=== PATIENT | male | born 1995 | race Caucasian/White ===

== ENCOUNTER 2016-11-21 20:23 | Emergency (ER) | payer SELFPAY ==
[~2016-11-21] VITALS: Ht 175.3 cm; Wt 104.3 kg
[~2016-11-21 20:23] MED LIST: AGM875T PO; FLUT16SP22 NS; HYDR-3812 PO; IBP800T PO
--- NOTE | 2016-11-21 21:38 | ED EENT ---
History of Present Illness General Chief Complaint: Oral/Throat Problems Stated Complaint: STREP THROAT/COUGHING UP BLOOD Nursing Triage Note: PT TO ED 10 W/ C/O SORE THROAT ET COUGHING UP BLOOD. REPORTS WAS SEEN AT HIS PCP YESTERDAY ET DX W/ STREP. DENIES IMPROVEMENT History of Present Illness Time seen by provider: 21:30 Initial Comments Evaluation for increased throat pain. He was diagnosed at [facility] yesterday with strep he was started on amoxicillin, but he was unable to get it until today. He's had 2 doses. He had ibuprofen earlier this morning and no Tylenol products today. Timing/Duration: yesterday Severity: moderate Prearrival Treatment: no prearrival treatment Modifying Factors: Improves With Rest Associated Symptoms: No cough, No poor fluid intake, poor solids intake, No sinus infection, sore throat, No voice change Allergies and Home Medications Allergies Coded Allergies: No Known Drug Allergies (Unverified , 01/04/13) Home Medications Hydrocodone/Acetaminophen 1 Each Tablet, 1 EACH PO Q4H PRN for PAIN, #20 Ref 0 Prescribed by: CRYSTAL UPTON on 07/15/16 1349 Prednisone 20 Mg Tab, 20 MG PO BID, #6 Ref 0 Prescribed by: ELIZABETH VALE on 11/21/16 2243 Review of Systems Constitutional: no symptoms reported, see HPI Eyes: No Symptoms Reported, See HPI Ears: No Symptoms Reported, See HPI Nose: no symptoms reported, see HPI Mouth: no symptoms reported, see HPI Throat: see HPI, pain, swelling, painful swallowing Respiratory: no symptoms reported, see HPI Cardiovascular: no symptoms reported, see HPI Gastrointestinal: no symptoms reported, see HPI Musculoskeletal: no symptoms reported, see HPI Skin: no symptoms reported, see HPI Neurological: No Symptoms Reported, See HPI Hematologic/Lymphatic: No Symptoms Reported, See HPI Immunological/Allergic: no symptoms reported, see HPI All Other Systems Reviewed Negative Unless Noted: Yes Past Qqmdvua-Qtezln-Iwnwnv Hx Patient Social History Alcohol Use: Denies Use Recreational Drug Use: No Smoking Status: Never a Smoker Recent Foreign Travel: No Contact w/Someone Who Travel: No Recent Infectious Disease Expo: No Recent Hopitalizations: No Surgeries HX Surgeries: No Respiratory Hx Respiratory Disorders: No Cardiovascular Hx Cardiac Disorders: No Neurological Hx Neurological Disorders: No Genitourinary Hx Genitourinary Disorders: No Gastrointestinal Hx Gastrointestinal Disorders: Yes Gastrointestinal Disorders: Liver Disease/Jaundice Reviewed Nursing Assessment Reviewed/Agree w Nursing PMH: Yes Family Medical History Significant Family History: No Pertinent Family Hx Physical Exam Vital Signs Vital Sign - Last 12Hours 11/21/16 20:54 Temp 98.1 Pulse 103 Resp 20 B/P (MAP) 142/101 O2 Delivery Room Air General Appearance: WD/WN, no apparent distress Eyes: bilateral eye EOMI, bilateral eye PERRL, bilateral eye normal inspection Ears: bilateral ear TM normal, bilateral ear auricle normal, bilateral ear canal normal Nose: normal inspection, No active bleeding, No discharge, No sinus tenderness Mouth/Throat: normal mouth inspection, pharynx swelling, tonsillar exudate ( marked bilateral exudate), tonsillar swelling (3+), other (No peritonsillar abscess noted) Neck: non-tender, full range of motion, supple, lymphadenopathy (R), lymphadenopathy (L) Cardiovascular: normal peripheral pulses, regular rate, rhythm, no edema, no murmur Respiratory: chest non-tender, lungs clear, normal breath sounds Gastrointestinal: normal bowel sounds, non tender, soft Neurologic/Psychiatric: no motor/sensory deficits, alert, normal mood/affect Skin: normal color, warm/dry, No rash Progress/Results/Core Measures Results/Orders Lab Results Laboratory Tests Test 11/21/16 21:52 Range/Units Monoscreen NEGATIVE NEGATIVE My Orders Orders - ELIZABETH VALE Monotest (11/21/16 21:46) Dexamethasone Pf Injection (Decadron Pf (11/21/16 21:46) Ibuprofen Tablet (Motrin Tablet) (11/21/16 21:47) Ceftriaxone Injection (Rocephin Injectio (11/21/16 22:45) Lidocaine 1% Injection (Xylocaine 1% Inj (11/21/16 22:45) Medications Given in ED Current Medications Medications Dose Ordered Sig/Rosaura Route Start Time Stop Time Status Last Admin Dose Admin Ceftriaxone Sodium 1,000 mg ONCE ONCE IM 11/21/16 22:45 11/21/16 22:46 DC 11/21/16 22:46 1,000 MG Lidocaine HCl 2.1 ml ONCE ONCE INJ 11/21/16 22:45 11/21/16 22:46 DC 11/21/16 22:46 2.1 ML Vital Signs/I&O Vital Sign - Last 12Hours 11/21/16 20:54 Temp 98.1 Pulse 103 Resp 20 B/P (MAP) 142/101 O2 Delivery Room Air Blood Pressure Mean: 115 Progress Note : Time: 21:30 Progress Note Initial evaluation completed, we'll give Decadron 10 mg IM, ibuprofen 600 mg by mouth and mono test. 2129 mono test negative. Rocephin 1 g IM. Discussed importance of taking amoxicillin as prescribed, throwing his toothbrush away in 2 days, and washing his pillowcase frequently. Departure Impression Impression: Primary Impression: Streptococcal tonsillitis Disposition: HOME, SELF-CARE Condition: Improved Departure-Patient Inst. Decision time for Depature: 22:00 Referrals: NO,LOCAL PHYSICIAN (PCP/Family) Primary Care Physician Patient Instructions: Strep Throat (DC) Add. Discharge Instructions: All discharge instructions reviewed with patient and/or family. Voiced understanding. Warm alt water gargles every 2-3 hours. Alternate Tylenol 650 mg and ibuprofen 600 mg every 4 hours. Continue to take antibiotics. Return to emergency department or community health for increased symptoms, fever , difficulty breathing, or any new complaints. Scripts Prednisone (Prednisone) 20 Mg Tab 20 MG PO BID, #6 TAB 0 Refills Prov: ELIZABETH VALE 11/21/16 Work/School Note: Work Release Form Date Seen in the Emergency Department: Nov 21, 2016 Return to Work: Nov 23, 2016 Restrictions: No Restrictions ELIZABETH VALE Nov 21, 2016 21:38
[2016-11-21] MEDS ORDERED: DEXAMETHASONE PF 10 MG/ML (DECADRON) VIAL IM STA (21:46)
[2016-11-21] MEDS ORDERED: IBUPROFEN TABLET 200 MG TAB PO STA (21:47)
[2016-11-21] MEDS ORDERED: PRD20T PO (22:43)
[2016-11-21] MEDS ORDERED: cefTRIAXone 1 GM (ROCEPHIN) VIAL IM ONE (22:45)
[2016-11-21] MEDS ORDERED: LIDOCAINE 1% INJ 20 ML (XYLOCAINE) VIAL INJ ONE (22:45)
[2016-11-21 23:04] VITALS: BP 142/104
== END 2016-11-21 23:04 | disposition home or self-care (01) ==
LOC: ER 20:23 → EDUNIT# 20:39 → ER 23:04
DX: J03.00 Acute streptococcal tonsillitis, unspecified (principal)
CPT/HCPCS: 36415; 86308; 96372; 99283

== ENCOUNTER 2018-02-27 04:40 | Observation (INO) | payer SELFPAY ==
[2018-02-27] VITALS (9 sets, daily range): BP systolic 117–139; BP diastolic 72–95
[~2018-02-27] VITALS: Ht 175.3 cm; Wt 103.4 kg
[~2018-02-27 04:40] MED LIST changes: +ACHD5005 PO; -HYDR-3812 PO; +PRD20T PO
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
[2018-02-27] MEDS ORDERED: ACETAMINOPHEN 500 MG TAB (TYLENOL) PO PRN (05:15)
[2018-02-27] MEDS ORDERED: LACTATED RINGERS 2,000 ML IV PRN (05:30)
[2018-02-27] MEDS ORDERED: ONDANSETRON 4 MG/2 ML (SDV) Z0FRAN IVP PRN (05:30)
[2018-02-27 05:40] LABS: BASOPHILS % (AUTO) 0 % (0-10); EOSINOPHILS # (AUTO) 0.2 10^3/uL (0.0-0.3); EOSINOPHILS % (AUTO) 2 % (0-10); HEMATOCRIT 41 % (40-54); HEMOGLOBIN 14.7 G/DL (13.3-17.7); LYMPHOCYTES # (AUTO) 2.1 X 10^3 (1.0-4.0); LYMPHOCYTES % (AUTO) 18 % (12-44); MEAN CORPUSCULAR HEMOGLOBIN 30 PG (25-34); MEAN CORPUSCULAR HGB CONC 36 G/DL (32-36); MEAN CORPUSCULAR VOLUME 83 FL (80-99); MEAN PLATELET VOLUME 10.8 FL (7.4-10.4); MONOCYTES # (AUTO) 1.1 X 10^3 (0.0-1.0); MONOCYTES % (AUTO) 9 % (0-12); NEUTROPHILS # (AUTO) 8.3 X 10^3 (1.8-7.8); NEUTROPHILS % (AUTO) 72 % (42-75); PLATELET COUNT 212 10^3/uL (130-400); RED BLOOD COUNT 4.91 10^6/uL (4.35-5.85); RED CELL DISTRIBUTION WIDTH 12.9 % (10.0-14.5); WHITE BLOOD COUNT 11.6 10^3/uL (4.3-11.0)
[2018-02-27 05:45] LABS: PROTHROMBIN TIME PATIENT 13.5 SEC (12.2-14.7)
[2018-02-27] MEDS ORDERED: KETOROLAC 30 MG/ML VIAL IV ONE (05:45)
[2018-02-27] MEDS ORDERED: cefTRIAXone INJECTION 1,000 MG in NS (IVPB) 50 ML IV ONE (05:45)
[2018-02-27 05:46] LABS: BILIRUBIN,URINE NEGATIVE (NEGATIVE); CLARITY,URINE CLEAR; COLOR,URINE YELLOW; GLUCOSE, URINE (UA) NEGATIVE (NEGATIVE); KETONES,URINE NEGATIVE (NEGATIVE); LEUKOCYTE ESTERASE ,URINE 1+ (NEGATIVE); NITRITE,URINE NEGATIVE (NEGATIVE); PH,URINE 5 (5-9); PROTEIN,URINE 2+ (NEGATIVE); UROBILINOGEN,URINE NORMAL (NORMAL)
[2018-02-27 05:53] LABS: ALANINE AMINOTRANSFERASE 44 U/L (0-55); ALBUMIN 4.6 GM/DL (3.2-4.5); ALKALINE PHOSPHATASE 94 U/L (40-136); BILIRUBIN,TOTAL 2.3 MG/DL (0.1-1.0); BUN/CREATININE RATIO 16; CALCIUM 9.6 MG/DL (8.5-10.1); CARBON DIOXIDE 22 MMOL/L (21-32); CHLORIDE 102 MMOL/L (98-107); CREATININE SERUM 1.05 MG/DL (0.60-1.30); GFR ESTIMATED > 60; GLUCOSE 110 MG/DL (70-105); POTASSIUM 4.1 MMOL/L (3.6-5.0); SODIUM 135 MMOL/L (135-145); TOTAL PROTEIN 7.9 GM/DL (6.4-8.2)
[2018-02-27 05:56] LABS: BACTERIA,URINE TRACE /HPF; SQUAMOUS EPITHELIAL CELL,UR 0-2 /HPF
--- NOTE | 2018-02-27 06:53 | Diagnostic Imaging Report ---
INDICATION: Fever, sore throat. TECHNIQUE: Two view chest 6:19 AM CORRELATION STUDY: 02/17/2015 FINDINGS: Heart size stable, vasculature slightly increased. Lung cope overall are clear. No significant effusion. Visualized osseous structures are unremarkable. IMPRESSION: 1. Heart size and vasculature borderline. May be accentuated by technique. No definitive infiltrate. Dictated by: Dictated on workstation # [id number]
[2018-02-27] MEDS ORDERED: AZITHROMYCIN 250 MG TAB (ZITHROMAX) PO NR (07:15)
[2018-02-27] MEDS ORDERED: CATHETER FLUSH 10 ML SYR IV PRN (08:15)
[2018-02-27] MEDS: NS IV 1000 ML 1,000 ML IV SCH ×3 (08:26→21:43)
[2018-02-27] MEDS ORDERED: ONDANSETRON 4 MG/2 ML (SDV) Z0FRAN IV PRN (08:30)
[2018-02-27] MEDS: IBUPROFEN 600 MG (MOTRIN) TAB PO PRN ×3 (08:39→21:43)
--- NOTE | 2018-02-27 09:40 | History & Physicial (CHS) ---
GERARDO GARCES MED STUDENT 02/27/18 0940: HPI History of Present Illness: Patient is a 23 year old male who went to the ER this morning for high fever and chills. For the last couple days he has had a sore throat and abdominal pain. Yesterday he developed a fever took some ibuprofen and went to bed. He woke up in the middle of the night a felt even worse and was sweating. He tried getting in the showing without improvement of his symptoms and came to the ER. He states that he has had no sick contacts but did have a new sexual encounter 1 week ago. Denies any recent tick or bug bites. He denies dysuria and frequency. Denies diarrhea and constipation. He states that he does have a headache at the base of his skull, but no neck pain with flexion. The headache is not sensitive to light. This morning he states that he is feeling a little better. Admits to some mild abdominal pain and some nausea and he did vomit once last night. Source: patient Date seen by provider: Feb 27, 2018 Time Seen by Provider: 09:00 Attending Physician Geri Kim MD PCP Center/[facility] [place],[facility] Consult Date of Admission Feb 27, 2018 at 06:25 Home Medications Home Medications Reviewed patient Home Medication Reconciliation performed by pharmacy medication reconciliations computer operations technician and/or nursing. Patients Allergies have been reviewed. Allergies Coded Allergies: No Known Drug Allergies (Unverified , 01/04/13) IUL-Tsgasn-Fkxzko Hx Patient Social History Alcohol Use: Occasionally Uses Recreational Drug Use: No Smoking Status: Never a Smoker Recent Foreign Travel: No Contact w/other who traveled: No Recent Hopitalizations: No Recent Infectious Disease Expo: No Family Medical History Significant Family History: No Pertinent Family Hx Review of Systems ([facility]) Constitutional: chills; No dizziness; fever, malaise EENTM: dental problems (Pain from wisdom teeth extraction), throat pain; No blurred vision, No double vision, No eye pain, No vision loss Respiratory: cough (occasional); No short of breath, No wheezing Cardiovascular: No chest pain, No palpitations, No syncope Gastrointestinal: abdominal pain; No constipation, No diarrhea; nausea; No vomiting Genitourinary: No discharge, No dysuria, No frequency, No hematuria Musculoskeletal: No back pain, No joint pain, No muscle weakness, No neck pain Skin: no symptoms reported Psychiatric/Neurological: Headache Physical Exam-([facility]) Physical Exam Vital Signs VS - Last 72 Hours, by Label 02/27/18 02/27/18 02/27/18 02/27/18 05:00 06:09 07:29 07:55 Temp 103.6 101.4 99.7 99.7 Pulse 140 110 106 108 Resp 20 18 18 20 B/P (MAP) 145/92 (109) 145/83 139/88 (103) 136/83 Pulse Ox 97 97 98 96 O2 Delivery Room Air Room Air 02/27/18 08:25 Pulse 104 Resp 20 B/P (MAP) 117/85 Pulse Ox 98 O2 Delivery Room Air Capillary Refill : Less Than 3 Seconds General Appearance: no apparent distress HEENT: PERRL/EOMI Neck: non-tender, full range of motion, supple, normal inspection Respiratory: chest non-tender, lungs clear, normal breath sounds, no respiratory distress, no accessory muscle use Cardiovascular: regular rate, rhythm, no edema, no gallop, no JVD, no murmur Gastrointestinal: normal bowel sounds, non tender, soft, no organomegaly, no pulsatile mass Back: normal inspection, no CVA tenderness, no vertebral tenderness Extremities: non-tender, normal inspection, no pedal edema, no calf tenderness Neurologic/Psychiatric: alert, normal mood/affect, oriented x 3 Skin: normal color, warm/dry Lymphatic: no adenopathy Assessment/Plan Assessment/Plan Admission Status: Inpatient Order (span 2 midnights) Reason for Inpatient Admission: Fever WBCs in Urine Assessment & Plan Fever - Temp was 103.6 at admit. His fever of 101.4 was at 6 am. - CXR Negative - George - negative - GAS - Negative - Acetaminophen prn Urinary Tract Infection - WBC 11.6; WBCs in urine; 2+ Protein in urine - IV Ceftriaxone and Azithromycin - Lactic acid at admit was 2.32 it has decreased to 1.3 this morning - CRP elevated at 2.05 - Urine Culture - Urine STD screen- Pending Nausea - Zofran prn Copy Copies To 1: GERI KIM MD, HOLLY R MD 02/27/18 1704: HPI History of Present Illness: Reviewed history with patient and agree with above documentation from student. Source: patient, RN/MD Exam Limitations: no limitations Home Medications Allergies Coded Allergies: No Known Drug Allergies (Unverified , 01/04/13) [facility]-Ssjwes-Uofwzh Hx Past Medical History None Review of Systems ([facility]) Constitutional: chills, fever, malaise EENTM: throat pain Respiratory: cough (occasional); No short of breath, No wheezing Cardiovascular: no symptoms reported Gastrointestinal: abdominal pain, loss of appetite, nausea Genitourinary: no symptoms reported, other (denies testicular pain or pain with urination, no penile discharge) Musculoskeletal: no symptoms reported Skin: no symptoms reported Psychiatric/Neurological: Headache (No different then his normal headache) Reviewed Test Results Reviewed Test Results Lab Laboratory Tests Test 02/27/18 05:00 02/27/18 05:05 02/27/18 05:20 02/27/18 05:30 Range/Units Group A Streptococcus Screen NEGATIVE NEGATIVE White Blood Count 11.6 H 4.3-11.0 10^3/uL Red Blood Count 4.91 4.35-5.85 10^6/uL Hemoglobin 14.7 13.3-17.7 G/DL Hematocrit 41 40-54 % Mean Corpuscular Volume 83 80-99 FL Mean Corpuscular Hemoglobin 30 25-34 PG Mean Corpuscular Hemoglobin Concent 36 32-36 G/DL Red Cell Distribution Width 12.9 10.0-14.5 % Platelet Count 212 130-400 10^3/uL Mean Platelet Volume 10.8 H 7.4-10.4 FL Neutrophils (%) (Auto) 72 42-75 % Lymphocytes (%) (Auto) 18 12-44 % Monocytes (%) (Auto) 9 0-12 % Eosinophils (%) (Auto) 2 0-10 % Basophils (%) (Auto) 0 0-10 % Neutrophils # (Auto) 8.3 H 1.8-7.8 X 10^3 Lymphocytes # (Auto) 2.1 1.0-4.0 X 10^3 Monocytes # (Auto) 1.1 H 0.0-1.0 X 10^3 Eosinophils # (Auto) 0.2 0.0-0.3 10^3/uL Basophils # (Auto) 0.0 0.0-0.1 10^3/uL Prothrombin Time 13.5 12.2-14.7 SEC INR Comment 1.0 0.8-1.4 Activated Partial Thromboplast Time 30 24-35 SEC Sodium Level 135 135-145 MMOL/L Potassium Level 4.1 3.6-5.0 MMOL/L Chloride Level 102 98-107 MMOL/L Carbon Dioxide Level 22 21-32 MMOL/L Anion Gap 11 5-14 MMOL/L Blood Urea Nitrogen 17 7-18 MG/DL Creatinine 1.05 0.60-1.30 MG/DL Estimat Glomerular Filtration Rate > 60 BUN/Creatinine Ratio 16 Glucose Level 110 H 70-105 MG/DL Calcium Level 9.6 8.5-10.1 MG/DL Total Bilirubin 2.3 H 0.1-1.0 MG/DL Aspartate Amino Transf (AST/SGOT) 23 5-34 U/L Alanine Aminotransferase (ALT/SGPT) 44 0-55 U/L Alkaline Phosphatase 94 40-136 U/L C-Reactive Protein High Sensitivity 2.05 H 0.00-0.50 MG/DL Total Protein 7.9 6.4-8.2 GM/DL Albumin 4.6 H 3.2-4.5 GM/DL Monoscreen NEGATIVE NEGATIVE Urine Color YELLOW Urine Clarity CLEAR Urine pH 5 5-9 Urine Specific [place] 1.015 L 1.016-1.022 Urine Protein 2+ H NEGATIVE Urine Glucose (UA) NEGATIVE NEGATIVE Urine Ketones NEGATIVE NEGATIVE Urine Nitrite NEGATIVE NEGATIVE Urine Bilirubin NEGATIVE NEGATIVE Urine Urobilinogen NORMAL NORMAL MG/DL Urine Leukocyte Esterase 1+ H NEGATIVE Urine RBC (Auto) NEGATIVE NEGATIVE Urine RBC NONE /HPF Urine WBC 10-25 H /HPF Urine Squamous Epithelial Cells 0-2 /HPF Urine Crystals NONE /LPF Urine Bacteria TRACE /HPF Urine Casts NONE /LPF Urine Mucus SMALL H /LPF Urine Culture Indicated YES Lactic Acid Level 2.32 *H 0.50-2.00 MMOL/L Test 02/27/18 07:38 Range/Units Lactic Acid Level 1.30 0.50-2.00 MMOL/L Radiology of Exam: 02/27/18 CHEST PA/LAT (2 VIEW) INDICATION: Fever, sore throat. TECHNIQUE: Two view chest 6:19 AM CORRELATION STUDY: 02/17/2015 FINDINGS: Heart size stable, vasculature slightly increased. Lung cope overall are clear. No significant effusion. Visualized osseous structures are unremarkable. IMPRESSION: 1. Heart size and vasculature borderline. May be accentuated by technique. No definitive infiltrate. Physical Exam-([facility]) Physical Exam General Appearance: WD/WN, no apparent distress HEENT: PERRL/EOMI Neck: non-tender, full range of motion, supple Respiratory: chest non-tender, lungs clear, normal breath sounds, no respiratory distress Cardiovascular: normal peripheral pulses, regular rate, rhythm, no edema, no murmur Gastrointestinal: normal bowel sounds, soft, no organomegaly; No guarding, No rebound; tenderness (diffuse, non localizing) Back: no CVA tenderness, no vertebral tenderness Extremities: non-tender, no pedal edema, no calf tenderness, normal capillary refill 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, no motor/sensory deficits, alert, normal mood/affect, oriented x 3 Skin: normal color, warm/dry Lymphatic: no adenopathy Assessment/Plan Assessment/Plan Admission Status: Observation (1) Sepsis Status: Acute Assessment & Plan: - Suspected infection of unknown origin, Treating for STIs and Urinary tract, continues to have fevers with treatment, LA resolved, Elevated CRP, Continue antibiotics, cultures pending Qualifiers: Qualified Codes: A41.9 - Sepsis, unspecified organism (2) Fever Status: Acute Qualifiers: Qualified Codes: R50.9 - Fever, unspecified (3) Nausea and vomiting Status: Acute Assessment & Plan: - Advance diet as tolerated, improved this AM Qualifiers: Qualified Codes: R11.2 - Nausea with vomiting, unspecified (4) Acute generalized abdominal pain Status: Acute Assessment & Plan: - Continue to monitor, non focal exam GERARDO GARCES MED STUDENT Feb 27, 2018 09:40 GERI KIM MD Feb 27, 2018 17:04
[2018-02-27] MEDS: cefTRIAXone 1 GM/NS 50 ML IVPB IV SCH ×2 (10:48)
[2018-02-27] MEDS: ACETAMINOPHEN 500 MG TAB (TYLENOL) PO PRN (14:58)
[2018-02-27] MEDS ORDERED: KETOROLAC 30 MG/ML VIAL IVP NR (15:52)
[2018-02-28 00:19] VITALS: BP 146/99
[2018-02-28 03:51] VITALS: BP 142/93
[2018-02-28] MEDS: ACETAMINOPHEN 500 MG TAB (TYLENOL) PO PRN (04:28)
[2018-02-28] MEDS: NS IV 1000 ML 1,000 ML IV SCH ×2 (04:28→10:45)
[2018-02-28 06:16] LABS: BASOPHILS % (AUTO) 0 % (0-10); EOSINOPHILS # (AUTO) 0.1 10^3/uL (0.0-0.3); EOSINOPHILS % (AUTO) 1 % (0-10); HEMATOCRIT 34 % (40-54); HEMOGLOBIN 12.3 G/DL (13.3-17.7); LYMPHOCYTES # (AUTO) 1.9 X 10^3 (1.0-4.0); LYMPHOCYTES % (AUTO) 23 % (12-44); MEAN CORPUSCULAR HEMOGLOBIN 30 PG (25-34); MEAN CORPUSCULAR HGB CONC 36 G/DL (32-36); MEAN CORPUSCULAR VOLUME 85 FL (80-99); MEAN PLATELET VOLUME 10.5 FL (7.4-10.4); MONOCYTES # (AUTO) 0.9 X 10^3 (0.0-1.0); MONOCYTES % (AUTO) 11 % (0-12); NEUTROPHILS # (AUTO) 5.4 X 10^3 (1.8-7.8); NEUTROPHILS % (AUTO) 65 % (42-75); PLATELET COUNT 153 10^3/uL (130-400); RED BLOOD COUNT 4.06 10^6/uL (4.35-5.85); RED CELL DISTRIBUTION WIDTH 12.7 % (10.0-14.5); WHITE BLOOD COUNT 8.3 10^3/uL (4.3-11.0)
[2018-02-28 06:32] LABS: BUN/CREATININE RATIO 11; CALCIUM 8.5 MG/DL (8.5-10.1); CARBON DIOXIDE 22 MMOL/L (21-32); CHLORIDE 108 MMOL/L (98-107); GFR ESTIMATED > 60; GLUCOSE 104 MG/DL (70-105); POTASSIUM 3.9 MMOL/L (3.6-5.0); SODIUM 137 MMOL/L (135-145)
[2018-02-28 08:00] VITALS: BP 146/90
[2018-02-28] MEDS: cefTRIAXone 1 GM/NS 50 ML IVPB IV SCH ×2 (08:03)
--- NOTE | 2018-02-28 10:57 | Discharge Summary ---
Diagnosis/Chief Complaint Date of Admission Feb 27, 2018 at 6:25 am Date of Discharge 02/28/2018 Admission Diagnosis Admission Diagnosis Sepsis UTI Strep Discharge Diagnosis See Above Chief Complaint/HPI Chief Complaint/HPI Reviewed history with patient and agree with above documentation from student. Discharge Summary-Simple/Stand Consultations None Discharge Physical Examination Allergies: Coded Allergies: No Known Drug Allergies (Unverified , 01/04/13) Vitals & I&Os Vital Sign - Last 12Hours Date Time Temp Pulse Resp B/P (MAP) Pulse Ox O2 Delivery O2 Flow Rate FiO2 02/28/18 08:00 98.0 93 22 146/90 (108) 97 Room Air Intake and Output 02/28/18 00:00 Intake Total 3152 ml Output Total 1400 ml Balance 1752 ml General Appearance: Alert, Oriented X3, Cooperative, No Acute Distress HEENT: Mucous Memb Moist/[place], Other (mild tonsilar erythema, no signs of abscess) Respiratory: Clear to Auscultation, Normal Air Movement Cardiovascular: Regular Rate, No Murmurs Abdominal: Normal Bowel Sounds, Soft, No Tenderness, No Hepatosplenomegaly, No Masses Extremities: No Edema, No Tenderness/Swelling Skin: No Rashes, No Breakdown Neuro: Normal Speech, Strength at 5/5 X4 Ext, Cranial Nerves 3-12 NL Psych/Mental Status: Mental Status NL, Mood NL Hospital Course See final discharge diagnosis. Radiology Reviewed of Exam: 02/27/18 CHEST PA/LAT (2 VIEW) INDICATION: Fever, sore throat. TECHNIQUE: Two view chest 6:19 AM CORRELATION STUDY: 02/17/2015 FINDINGS: Heart size stable, vasculature slightly increased. Lung cope overall are clear. No significant effusion. Visualized osseous structures are unremarkable. IMPRESSION: 1. Heart size and vasculature borderline. May be accentuated by technique. No definitive infiltrate. Discussion & Recommendations 23 yo M that presented with sepsis Sepsis: Patient was started on broad spectrum antibiotics and IVFs. Fever and pain improved. Strep culture returned positive and he was treated with PCN. UTI: Continued home on PO antibiotics. STD check negative Strep Throat: Treated with PCN with improved prior to discharge and tolerating PO diet. Discharge Condition at discharge stable Instructions to patient/family Please see electronic discharge instructions given to patient. Discharge Medications Reviewed and agree with Discharge Medication list on patient's Discharge Instruction sheet Clinical Quality Measures DVT/VTE Risk/Contraindication: RFS Level Per Nursing on Admit: 0=No Risk/No VTE PPX Copy Copies To 1: GERI HAWKINS MD Feb 28, 2018 10:57
[2018-02-28] MEDS ORDERED: AMOX500T2 PO (10:58)
--- NOTE | 2018-02-28 11:00 | Discharge Instructions ---
Discharge Inst-[facility] Discharge Medications New, Converted or Re-Newed RX: Transmitted to Pharmacy ([facility]) New Medications: Amoxicillin (Amoxicillin) 500 Mg Tablet 500 MG PO TID for 7 Days, #21 TAB Patient Instructions Goal/Follow Up Appt: You will be call on Friday with follow up appt Patient Instructions: - Make sure you complete your antibiotics Return to The Hospital For: - Fever that does not improve with tylenol or motrin - Unable to tolerate antibiotics Activity & Diet Discharge Diet: No Restrictions Activity as Tolerated: Yes Copy Copies To 1: GERI LIN MD, HOLLY R MD Feb 28, 2018 11:00 am
[2018-02-28 11:04] VITALS: BP 146/90
== END 2018-02-28 10:58 | disposition home or self-care (01) ==
LOC: EDUNIT# 04:40 → ER 04:45 → 4TH 06:25 → UNDOADMOB 06:25 → 4TH 07:45 → UNDODISOB 02-28 11:05
PROVIDERS: ADMIT Family Medicine; ATTEND Family Medicine
DX: A41.9 Sepsis, unspecified organism (principal); N39.0 Urinary tract infection, site not specified; R50.9 Fever, unspecified; R11.2 Nausea with vomiting, unspecified; R10.84 Generalized abdominal pain
CPT/HCPCS: 36415; 71046; 80048; 80053; 81000; 82962; 83605; 85025; 85610; 85730; 86141; 86308; 87040; 87088; 87430; 87491; 87591; 96361; 96365; 96375; G0378

== ENCOUNTER 2018-04-16 09:13 | Emergency (ER) | payer SELFPAY ==
[~2018-04-16] VITALS: Ht 177.8 cm; Wt 102.1 kg
[~2018-04-16 09:13] MED LIST changes: +AMOX500T2 PO
[2018-04-16 09:25] VITALS: BP 143/99
[2018-04-16] MEDS ORDERED: RT-ALBUTEROL SULF 2.5 MG/3 ML PRE-MIX VIAL INH STA (09:43)
[2018-04-16] MEDS ORDERED: RX-ALBUTEROL INHALER (PROAIR) 8 GM IH STA (10:18)
--- NOTE | 2018-04-16 10:31 | ED Respiratory ---
General Chief Complaint: Respiratory Problems Stated Complaint: CHEST DISCOMFORT,BREATHING TROUBLES Source: patient Exam Limitations: no limitations History of Present Illness Date Seen by Provider: Apr 16, 2018 Time Seen by Provider: 09:40 Initial Comments Here with report of chest tightness that is central and reported as burning across the chest. [place] short of breath with some coughing and sore throat this morning. Has mild runny nose. States he feels a little short of breath. Overall a little better now. 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 Timing/Duration: this morning Prior Episodes/Possible Cause: no prior episodes Modifying Factors: Improves With Rest Associated Symptoms: cough; No fever/chills; nasal congestion, shortness of breath, wheezing Allergies and Home Medications Allergies Coded Allergies: No Known Drug Allergies (Unverified , 01/04/13) Home Medications No Active Prescriptions or Reported Meds Patient Home Medication List Home Medication List Reviewed: Yes Review of Systems Review of Systems Constitutional: see HPI, chills; No fever EENTM: nose congestion, throat pain Respiratory: cough, short of breath Cardiovascular: see HPI Gastrointestinal: no symptoms reported Musculoskeletal: no symptoms reported Past Scoftsn-Xsuxyb-Icsoae Hx Past Med/Social Hx: Reviewed Nursing Past Med/Soc Hx Patient Social History Alcohol Use: Denies Use Recreational Drug Use: No Smoking Status: Never a Smoker Recent Foreign Travel: No Contact w/Someone Who Travel: No Recent Hopitalizations: No Physical Abuse: No Sexual Abuse: No Mistreated: No Fear: No Seasonal Allergies Seasonal Allergies: No Past Medical History Surgeries: No Respiratory: No Currently Using CPAP: No Currently Using BIPAP: No Cardiac: No Neurological: No Genitourinary: Yes (Septic UTI 02/2018) UTI-Chronic Gastrointestinal: Yes (WAS TOLD HAD " FATTY LIVER " 3 YRS AGO WHEN HAVING ABD. PAIN IN LIVER AREA) Liver Disease/Jaundice Musculoskeletal: Yes (FX RIGHT HAND MIDDLE FINGER) Fractures Endocrine: No HEENT: No Cancer: No Psychosocial: No Integumentary: No Blood Disorders: No Family Medical History Reviewed Nursing Family Hx Diabetes mellitus 19 FATHER MA-GRANDFATHER [place] GRANDFATHER No Pertinent Family Hx Physical Exam Vital Signs - First Documented 04/16/18 09:53 Pulse Ox 99 O2 Delivery Room Air Capillary Refill : Height: 5'9.00" Weight: 228lbs. 0.0oz. 103.366856ok; 33.7 BMI Method:Stated General Appearance: WD/WN, no apparent distress HEENT: PERRL/EOMI, pharyngeal erythema, other (mild bilateral nasal congestion with clear rhinorrhea) Neck: full range of motion, supple Respiratory: lungs clear, normal breath sounds Cardiovascular: regular rate, rhythm, no murmur Gastrointestinal: non tender, soft Neurologic/Psychiatric: alert, oriented x 3 Skin: normal color, warm/dry Progress/Results/Core Measures Suspected Sepsis SIRS Temperature: Pulse: Respiratory Rate: Blood Pressure / Mean: Results/Orders My Orders Orders - ONESIMO FAY MD Albuterol Pre-Mix Nebs (Rt) (Proventil (04/16/18 09:43) Svn Small Volume Nebulizer (04/16/18 09:43) Rx-Albuterol Inhaler (Rx-Proair) (04/16/18 10:18) Vital Signs/I&O 04/16/18 09:53 Pulse Ox 99 O2 Delivery Room Air Capillary Refill : Progress Note : Progress Note Seen and evaluated. Albuterol neb ordered. This did help resolve his symptoms. We will give albuterol MDI. Discharged home with return precautions. Patient verbalize understanding instructions and agreement with plan. Departure Impression Primary Impression: Bronchitis Disposition: 01 HOME, SELF-CARE Condition: Improved Departure-Patient Inst. Decision time for Depature: 10:29 Referrals: [facility] [place] Primary Care Physician Patient Instructions: Acute Bronchitis, Adult (DC) Add. Discharge Instructions: All discharge instructions reviewed with patient and/or family. Voiced understanding. You may take ibuprofen and/or Tylenol/acetaminophen as needed for pain or fever per package directions. Drink plenty of fluids. You may use [id number] cough medicine for Benadryl as needed for congestion per package directions. Follow up with your DrEnrrique in a few days for recheck. Return for worse pain, fever , vomiting, weakness, breathing problems or other concerns as needed. Scripts No Active Prescriptions or Reported Meds Work/School Note: Work Release Form Date Seen in the Emergency Department: Apr 16, 2018 Return to Work: Apr 17, 2018 Restrictions: No Restrictions ONESIMO FAY MD Apr 16, 2018 10:30
== END 2018-04-16 11:03 | disposition home or self-care (01) ==
LOC: EDUNIT# 09:13 → ER 09:14
DX: J40 Bronchitis, not specified as acute or chronic (principal); Z87.440 Personal history of urinary (tract) infections; Z87.19 Personal history of other diseases of the digestive system
CPT/HCPCS: 94640; 99282